=== PATIENT | female | born 1950 | race Caucasian/White ===

== ENCOUNTER 2016-07-10 22:21 | Emergency (ER) | payer MEDICARE ==
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
[2016-07-10] MEDS ORDERED: ACETAMINOPHEN 325 MG TABLET PO ONE (22:39)
[2016-07-11] MEDS ORDERED: HYDROCODONE/ACETAMINOPHEN 5-325 MG 6 TAB/DSPK PO PRN (03:08)
[2016-07-11] MEDS ORDERED: DIPH/PERTUSS(ACELL)/TETANUS VAC/PF 0.5 ML SYR (>=10YO) IM ONE (03:09)
[2016-07-11] MEDS ORDERED: CIPROFLOXACIN HCL 0.3% OPH SOLN 2.5 ML OS SCH ×2 (03:15→09:00)
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
[2016-07-11] MEDS ORDERED: CIPROFLOXACIN HCL 0.3% OPH SOLN 2.5 ML OS ONE (03:30)
[2016-07-11 03:34] VITALS: BP 168/82
== END 2016-07-11 03:45 | disposition home or self-care (01) ==
LOC: ER 22:21
DX: H16.002 Unspecified corneal ulcer, left eye (principal); J30.2 Other seasonal allergic rhinitis; I25.2 Old myocardial infarction; I10 Essential (primary) hypertension; Z95.0 Presence of cardiac pacemaker
CPT/HCPCS: 99283; 90471; 90715; A9270 ×2; J3490

== ENCOUNTER 2017-07-20 19:00 | Observation (INO) | payer MEDICARE ==
[2017-07-20] MEDS ORDERED: IPRATROPIUM/ALBUTEROL 0.5-2.5 MG/3 ML AMPUL NEB ONE ×2 (19:26→19:57)
[2017-07-20] MEDS ORDERED: PREDNISONE 20 MG TABLET PO ONE (19:28)
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
--- NOTE | 2017-07-20 20:22 | RADIOLOGY REPORT (SQ) ---
EXAM DESCRIPTION: CHEST PA/LAT COMPLETED DATE/TIME: 07/20/2017 8:15 pm REASON FOR STUDY: cough, wheezing, sob COMPARISON: Two-view chest 01/12/2016 EXAM PARAMETERS: NUMBER OF VIEWS: two views TECHNIQUE: Digital Frontal and Lateral radiographic views of the chest acquired. RADIATION DOSE: NA LIMITATIONS: none FINDINGS: LUNGS AND PLEURA: No opacities, masses or pneumothorax. No pleural effusion. MEDIASTINUM AND HILAR STRUCTURES: Right-sided aortic arch HEART AND VASCULAR STRUCTURES: Stable mild cardiomegaly BONES: Osteopenic. No acute fracture HARDWARE: Left-sided dual lead pacemaker OTHER: No other significant finding. IMPRESSION: No acute findings. TECHNICAL DOCUMENTATION: JOB ID: [id number] [email or web address] Rights Reserved Reading location - IP/workstation name: [email or web address]
[2017-07-20] MEDS: MAGNESIUM SULFATE/D5W 1 GM/100 ML RTUPB IV SCH ×2 (20:24→20:47)
[2017-07-20 20:44] LABS: VENOUS BLOOD BASE EXCESS 0.7 mmol/L; VENOUS BLOOD PCO2 39.1 mmHg (35-63); VENOUS BLOOD PH 7.42 (7.30-7.42)
[2017-07-20 20:46] LABS: ABSOLUTE EOSINOPHILS # (AUTO) 0.1 10^3/uL (0.0-0.6); ABSOLUTE LYMPHOCYTES (AUTO) 1.2 10^3/uL (0.5-4.7); ABSOLUTE MONOCYTES (AUTO) 0.5 10^3/uL (0.1-1.4); ABSOLUTE NEUT (AUTO) 1.9 10^3/uL (1.7-8.2); BASOPHILS % (AUTO) 0.5 % (0-2); EOSINOPHILS % (AUTO) 2.2 % (0-6); HEMATOCRIT 41.3 % (36.0-47.0); HEMOGLOBIN 13.8 g/dL (12.0-15.5); LYMPHOCYTES % (AUTO) 33.2 % (13-45); MEAN CORPUSCULAR HEMOGLOBIN 32.2 pg (27.0-33.4); MEAN CORPUSCULAR HGB CONC 33.5 g/dL (32.0-36.0); MEAN CORPUSCULAR VOLUME 96 fl (80-97); MONOCYTES % (AUTO) 13.3 % (3-13); RED CELL DISTRIBUTION WIDTH 13.9 % (11.5-14.0); SEGMENTED NEUTROPHILS % (AUTO) 50.8 % (42-78); TOTAL CELLS COUNTED % (AUTO) 100 %; WHITE BLOOD COUNT 3.8 10^3/uL (4.0-10.5)
[2017-07-20 21:05] LABS: ALANINE AMINOTRANSFERASE 54 U/L (9-52); ALBUMIN 3.6 g/dL (3.5-5.0); ALKALINE PHOSPHATASE 78 U/L (38-126); ANION GAP 7 (5-19); ASPARTATE AMINO TRANSFERASE 29 U/L (14-36); BILIRUBIN,DIRECT 0.1 mg/dL (0.0-0.4); BILIRUBIN,TOTAL 0.2 mg/dL (0.2-1.3); BLOOD UREA NITROGEN 19 mg/dL (7-20); CARBON DIOXIDE 27 mmol/L (22-30); CHLORIDE 107 mmol/L (98-107); DIGOXIN 0.42 ng/mL (0.8-2.0); GLUCOSE 97 mg/dL (75-110); POTASSIUM 4.6 mmol/L (3.6-5.0); SODIUM 141.2 mmol/L (137-145); TOTAL PROTEIN 5.7 g/dL (6.3-8.2)
[2017-07-20 21:13] LABS: NT PRO BNP 794 pg/mL (5-900); TROPONIN I < 0.012 ng/mL
[2017-07-20 21:23] LABS: PLATELET COUNT 91 10^3/uL (150-450)
[2017-07-20] MEDS ORDERED: ALBUTEROL SULFATE 0.083% NEB 2.5 MG/3 ML AMPUL NEB PRN (21:40)
[2017-07-20] MEDS ORDERED: PROMETHAZINE HCL INJ 25 MG/1 ML VIAL IV PRN (21:40)
[2017-07-20] MEDS ORDERED: ACETAMINOPHEN 325 MG TABLET PO PRN (21:40)
[2017-07-20] MEDS ORDERED: OSELTAMIVIR PHOSPHATE 75 MG CAPSULE PO ONE (22:00)
[2017-07-20] MEDS: METHYLPREDNISOLONE INJ 40 MG/1 ML SDV IV SCH (22:10)
[2017-07-21] MEDS ORDERED: WARFARIN SODIUM 7.5 MG TABLET PO SCH (00:30)
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
[2017-07-21] MEDS: IPRATROPIUM/ALBUTEROL 0.5-2.5 MG/3 ML AMPUL NEB SCH ×2 (02:21→07:46)
[2017-07-21 03:25] LABS: INTERNATIONAL RATION (INR) 1.19; PROTHROMBIN TIME 15.9 SEC (11.4-15.4)
[2017-07-21] MEDS: METHYLPREDNISOLONE INJ 40 MG/1 ML SDV IV SCH (06:13)
--- NOTE | 2017-07-21 07:09 | EKG REPORT ---
SEVERITY:- ABNORMAL ECG - ATRIAL-PACED COMPLEXES IVCD, CONSIDER ATYPICAL RBBB PROBABLE LVH WITH SECONDARY REPOL ABNRM OLD INFERIOR HI : Confirmed by: Chadwick Franco MD 21-Jul-2017 07:08:58
[2017-07-21] MEDS ORDERED: PREDNISONE 20 MG TABLET PO SCH (10:00)
[2017-07-21] MEDS ORDERED: GUAIFENESIN 600 MG TABLET.SA PO SCH (10:00)
[2017-07-21] MEDS ORDERED: OSELTAMIVIR PHOSPHATE 75 MG CAPSULE PO SCH (10:00)
[2017-07-21 12:15] VITALS: BP 134/74
--- NOTE | 2017-07-21 13:49 | DISCHARGE SUMMARY E ---
Discharge Summary NAME: WOODROW BROWNLEE : 1950 AGE: 66Y ADMITTED: 07/20/2017 DISCHARGED: 07/21/2017 CODE STATUS: FULL CODE. PRIMARY CARE PROVIDER: Juaquin Barahona M.D. FINAL DIAGNOSES: 1. Influenza B. 2. Dyspnea which has improved. 3. History of pulmonary embolism and subsequent chronic anticoagulation. 4. Coronary artery disease. 5. Chronic systolic congestive heart failure. 6. Sleep apnea with CPAP. DISCHARGE MEDICATIONS: 1. Coumadin 7.5 mg by mouth q. hour sleep 30 tablets, 0 refills. Repeat INR in 3 days. 2. Prednisone 40 mg taper. 3. Tamiflu 75 mg twice a day by mouth. 4. Mucinex 1200 mg by mouth q.12 hours. 5. ProAir HFA 1 puff inhalation q.4 hours as needed shortness of breath. DIET: Heart healthy. ACTIVITY: As tolerated. CONDITION: Stable. DIAGNOSTICS: Hematology obtained on 07/20/2017 demonstrates a WBC 3.8, hemoglobin 7.8, hematocrit 41.3, and platelet count is 91,000. Coagulation obtained on 07/21/2017: PT is 6.9, INR 1.19, , D-dimer is 0.31. Venous blood gas obtained on 07/20/2017: A pH of 7.42, pCO2 is 39.1, bicarb is 25.0. Chemistry obtained on 07/21/2017: Sodium is 141, potassium is 4.6, chloride 107, carbon dioxide 27, BUN 19, creatinine 0.78, glucose 97, calcium is 9.0, bilirubin 0.2, AST 29, ALT 54, alk phos 78. Troponin 0.012. BNP is 794. Total protein 5.6, albumin 3.6. Toxicology obtained on 07/20/2017: Digoxin is 0.42. Serology obtained on 07/20/2017: Group A strep is negative. Microbiology blood cultures obtained on 07/20/2017 revealed no growth. Throat culture obtained on 07/20/2017 revealed no recorded results at this time. Chest x-ray obtained on 07/20/2017 revealed no acute findings. PHYSICAL EXAMINATION: GENERAL: The patient is a 66-year-old female who is awake, alert and oriented to person, place, time, and situation. She is verbal, conversation. In no acute distress. VITAL SIGNS: Temperature 98.0, pulse 76, respirations 18, blood pressure is 147/69, oxygen saturation 100% on 2 L nasal cannula. SKIN: Warm and dry. No rash. Not diaphoretic. HEENT: Pupils equal, round and reactive to light and accommodation. Conjunctivae pink. NECK: No evidence of JVP. CARDIOVASCULAR SYSTEM: Regular without murmur or rub. CHEST: Expiratory wheezes noted in the upper lung andrade. ABDOMEN: Soft, nontender, nondistended. BACK: No CVA tenderness or sacral edema. EXTREMITIES: No clubbing, cyanosis, or edema. PSYCHIATRIC: Appropriate affect, pleasant mood. HISTORY OF PRESENT ILLNESS: The patient is a 66-year-old female with a past medical history of known chronic systolic congestive heart failure with apparent cardiomyopathy resulting in an EF of 20%. The patient presented to the emergency department with a chief complaint of shortness of breath. Apparently, the patient went to primary care provider and was noted to have influenza B. The patient was discharged on Tamiflu and was instructed to return to the hospital if her symptoms persisted or if her oxygen saturations were below 94%. Given the patient's oxygen level dropped to 94% she came to the emergency department as instructed. The patient apparently said she had not been feeling well, however, she was not acutely tachypneic only mildly hypoxic. Given that the patient has underlying CHF, there was concern for the patient felt that she needed to be admitted at least for observation. The patient was referred to the hospitalist for observation and management. HOSPITAL COURSE: The patient was observed in the continuous telemetry unit. The patient was placed on steroids and nebulizers with significant improvement of symptoms. The patient did not require oxygen and was ambulating in the hallway and maintained within the high 90s with ambulation, nor was the patient was advertently symptomatic. The patient does admit to some mild dyspnea with activity. However, she is able to ambulate without issue. The patient does have a strong cough, has been able to produce some sputum, but the patient has not been significantly tachycardic or tachypneic and the patient is quite eager for discharge. The patient is instructed to follow up with her primary care provider as she does need a repeat INR as the patient's INR was subtherapeutic. The patient's Coumadin was increased to 7.5 mg. The patient is agreeable to this. The patient already has a prescription for Tamiflu as well as ProAir which this shall be continued. DISCHARGE PLANNING: The patient is advised to follow up with her primary care provider within 72 hours for hospital follow up for repeat INR. Time spent on this discharge including assessment, plan, physical examination, patient education, and review of records is 35 minutes. DICTATING PHYSICIAN: SVETA MCGINNIS NP [id number] PHY#: [id number] ID: [id number] JOB#: [id number] ACCT: [id number] cc:PERRI ROMANO M.D. >
[2017-07-21] MEDS ORDERED: WARFARIN SODIUM 5 MG TABLET PO SCH (22:00)
[2017-07-22] MEDS ORDERED: WARFARIN SODIUM 2.5 MG TABLET PO SCH (22:00)
[2017-07-23] MEDS ORDERED: WARFARIN SODIUM 5 MG TABLET PO SCH (22:00)
== END 2017-07-21 16:08 | disposition home or self-care (01) ==
LOC: ER 19:00 → EH 21:51 → 4N 07-21 00:35
PROVIDERS: ADMIT Internal Medicine Geriatric Medicine; ATTEND Internal Medicine Geriatric Medicine
DX: J11.1 Influenza due to unidentified influenza virus with other respiratory manifestations (principal); I11.0 Hypertensive heart disease with heart failure; I50.22 Chronic systolic (congestive) heart failure; I25.10 Atherosclerotic heart disease of native coronary artery without angina pectoris; Z79.01 Long term (current) use of anticoagulants; Z86.711 Personal history of pulmonary embolism
CPT/HCPCS: 93005; 94640 ×4; 99285; 96375; 96365; 36415 ×2; 87040; 87070; 87880; 80162; 85025; 85610 ×2; 80053; 84484 ×2; 85379; 82803; 83880; 71046; 93010; G0378 ×2; A9270 ×7; J2920 ×2; J3475; J3490 ×2; J7512; J7620

== ENCOUNTER → 2017-11-11 | Outpatient (CLI) | payer MEDICARE ==
--- NOTE | 2017-11-11 10:18 | RADIOLOGY REPORT (SQ) ---
EXAM DESCRIPTION: U/S ABDOMEN COMPLETE W/O DOP COMPLETED DATE/TIME: 11/11/2017 10:00 am REASON FOR STUDY: OTHER CIRRHOSIS OF LIVER K74.69 OTHER CIRRHOSIS OF LIVER COMPARISON: February 2016 TECHNIQUE: Dynamic and static grayscale images acquired of the abdomen and recorded on PACS. Gabrielleo sharon selected color Doppler and spectral images recorded. LIMITATIONS: None. FINDINGS: PANCREAS: No masses. Visualized pancreatic duct normal caliber. LIVER: No masses. Echotexture normal. LIVER VASCULATURE: Normal directional flow of the main portal vein. GALLBLADDER: Status post cholecystectomy ULTRASOUND-DETECTED MARES'S SIGN: Negative. INTRAHEPATIC DUCTS AND COMMON DUCT: CBD and intrahepatic ducts normal caliber. No filling defects. INFERIOR VENA CAVA: Normal flow. AORTA: No aneurysm. RIGHT KIDNEY: 9.0 cm in length Normal echogenicity. No solid or suspicious masses. Small cyst i s identified measuring 1.8 x 1.7 x 1.1 cm in diameters. No hydronephrosis. No calcifications. LEFT KIDNEY: 8.8 cm in length. Normal echogenicity. No solid or suspicious masses. No hydronep hrosis. No calcifications. SPLEEN: Normal size. No solid masses. PERITONEAL AND PLEURAL SPACES: No ascites or effusions. OTHER: No other significant finding. IMPRESSION: No significant intra-abdominal abnormalities were identified. Status post cholecystecto my. TECHNICAL DOCUMENTATION: JOB ID: [id number] [employer]- All Rights Reserved Reading location - IP/workstation name: [email or web address]
== END ==
LOC: RAD 09:08
PROVIDERS: ATTEND Internal Medicine Gastroenterology
DX: K74.69 Other cirrhosis of liver (principal)
CPT/HCPCS: 76700

== ENCOUNTER 2017-11-17 18:42 | Emergency (ER) | payer MEDICARE ==
[2017-11-17] MEDS ORDERED: PERMETHRIN 5% CREAM 60 GM TP PRN (21:08)
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
[2017-11-17] MEDS ORDERED: PERMETHRIN 5% CREAM 60 GM ONE (21:59)
[2017-11-17 22:10] VITALS: BP 169/93
== END 2017-11-17 22:10 | disposition home or self-care (01) ==
LOC: ER 18:42
DX: B86 Scabies (principal); I25.10 Atherosclerotic heart disease of native coronary artery without angina pectoris; I10 Essential (primary) hypertension
CPT/HCPCS: 99282; J3490

== ENCOUNTER → 2018-06-11 | Outpatient (CLI) | payer MEDICARE ==
--- NOTE | 2018-06-11 14:28 | WOMENS IMAGING REPORT ---
EXAM DESCRIPTION: BILAT SCREENING MAMMO W/CAD COMPLETED DATE/TIME: 06/11/2018 2:17 pm REASON FOR STUDY: Z12.31 BILATERAL SCREENING MAMMOGRAM Z12.31 ENCNTR SCREEN MAMMOGRAM FOR MALIGNANT NEOPLASM OF MARA R42 DIZZINESS AND GIDDINESS COMPARISON: 2016 TECHNIQUE: Standard craniocaudal and mediolateral oblique views of each breast recorded using BlueSpr[employer] l acquisition. LIMITATIONS: None. FINDINGS: Findings present which are benign by mammographic criteria. No suspicious masses, calcifi cations or architectural distortion. Pertinent benign findings: Benign bilateral breast parenchymal and arterial vascular calcifications. Artifact from pacemaker over the left upper chest with prominent subcutaneous vein, stable Read with the assistance of CAD. .[facility] - R2 Cenova Version 1.3 .[facility] - R2 Cenova Version 2.1 .[facility] - R2 Cenova Version 2.4 .[facility] - R2 Cenova Version 2.4 .[facility] - R2 Banquet Server On Call Version 9.2 Benign mammographic findings may include one or more of the following: Smooth masses, popcorn/rim/co arse calcifications, asymmetries, post-procedure changes, and lesions with long-standing stability. IMPRESSION: BENIGN MAMMOGRAPHIC FINDINGS. BIRADS 2 BREAST DENSITY: c. The breasts are heterogeneously dense, which may obscure small masses. BIRAD: 2 BENIGN FINDING(S) RECOMMENDATION: ROUTINE SCREENING Please consider yearly bilateral screening tomosynthesis in April 2019 given heterogeneously dense tissue COMMENT: The patient has been notified of the results by letter per MQSA requirements. Additional no tification policies are in place for contacting patient with suspicious or incomplete findings. Quality ID #225: The [employer] recommends an annual screening mammogram for women aged 40 years or over. This facility utilizes a reminder system to ensure that all patients receive reminder letters, and/or direct phone calls for appointments. This includes reminders for routine scr eening mammograms, diagnostic mammograms, or other Breast Imaging Interventions when appropriate. Th is patient will be placed in the appropriate reminder system. The [employer] (ACR) has developed recommendations for screening MRI of the breast s in certain patient populations, to be used in conjunction with mammography. Breast MRI surveillanc e may be appropriate for women with more than 20% lifetime risk of developing breast cancer as deter mined by genetic testing, significant family history of the disease, or history of mantle radiation f or Hodgkins Disease. ACR Practice Guidelines 2008. TECHNICAL DOCUMENTATION: FINDING NUMBER: (1) ASSESSMENT: (1) JOB ID: [id number] [employer]- All Rights Reserved Reading location - IP/workstation name: [email or web address]
--- NOTE | 2018-06-11 15:04 | RADIOLOGY REPORT (SQ) ---
EXAM DESCRIPTION: CAROTID DOPPLER COMPLETED DATE/TIME: 06/11/2018 1:40 pm REASON FOR STUDY: DIZZINESS Z12.31 ENCNTR SCREEN MAMMOGRAM FOR MALIGNANT NEOPLASM OF MARA R42 DIZZI NESS AND GIDDINESS COMPARISON: None. TECHNIQUE: Grayscale ultrasound, Doppler velocity and spectra, and color Doppler images acquired of the extra-cranial carotid and vertebral arteries. Images stored on PACS. LIMITATIONS: None. FINDINGS: RIGHT CAROTID CCA Velocities: Within normal limits. Right common carotid artery peak systolic velocity 0.61 m/sec ICA Velocities Peak systolic 0.79 m/s. End diastolic 0.13 m/s. Proximal ICA/CCA peak systolic ratio 1.7. Calcific plaque at the right carotid bifurcation without flow significant stenosis proximal right ICA LEFT CAROTID CCA Velocities: Within normal limits. Left common carotid artery peak systolic velocity 0.83 m/sec ICA Velocities Peak systolic 0.67 m/s. End diastolic 0.12 m/s. Proximal ICA/CCA peak systolic ratio 1.5. Spectra normal. No significant plaque. VERTEBRAL ARTERIES: Antegrade flow. Normal waveforms. SUBCLAVIAN ARTERIES: Not evaluated OTHER: No other significant finding. IMPRESSION: NO HEMODYNAMICALLY SIGNIFICANT STENOSIS AT THE CAROTID BIFURCATIONS. COMMENT: Quality ID #195: Velocity criteria are extrapolated from the diameter data as defined by t he Society of Radiologists in Ultrasound Consensus Conference. Radiology 2003: 229; 340-346. TECHNICAL DOCUMENTATION: JOB ID: [id number] [employer]- All Rights Reserved Reading location - IP/workstation name: [email or web address]
== END ==
LOC: SP 13:56
PROVIDERS: ATTEND Family Medicine
DX: Z12.31 Encounter for screening mammogram for malignant neoplasm of breast (principal); R42 Dizziness and giddiness
CPT/HCPCS: 77067; 93880

== ENCOUNTER → 2018-07-29 | Outpatient (CLI) | payer MEDICARE ==
--- NOTE | 2018-07-29 13:07 | WOMENS IMAGING REPORT ---
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 TECHNIQUE: Dynamic and static grayscale images acquired of the abdomen and recorded on PACS. Additio nal selected color Doppler and spectral images recorded. LIMITATIONS: None. FINDINGS: PANCREAS: No masses. Visualized pancreatic duct normal caliber. LIVER: No masses. Echotexture normal. LIVER VASCULATURE: Normal directional flow of the main portal vein and hepatic veins. GALLBLADDER: Surgically absent. ULTRASOUND-DETECTED MARES'S SIGN: Not applicable. INTRAHEPATIC DUCTS AND COMMON DUCT: CBD and intrahepatic ducts normal caliber. No filling defects. INFERIOR VENA CAVA: Normal flow. AORTA: No aneurysm. RIGHT KIDNEY: Normal size. Normal echogenicity. No solid or suspicious masses. No hydronephrosis. No calcifications. PERITONEAL AND RIGHT PLEURAL SPACE: No ascites or effusions. OTHER: No other significant findings. IMPRESSION: NORMAL RIGHT UPPER QUADRANT ULTRASOUND. TECHNICAL DOCUMENTATION: JOB ID: [id number]- All Rights Reserved Reading location - IP/workstation name: [email or web address]
== END ==
LOC: WI 10:22
PROVIDERS: ATTEND Internal Medicine Gastroenterology
DX: B18.2 Chronic viral hepatitis C (principal); K74.69 Other cirrhosis of liver
CPT/HCPCS: 76705

== ENCOUNTER 2019-09-24 13:26 | Inpatient (IN) | payer MEDICARE ==
[2019-09-24 13:48] LABS: ABSOLUTE LYMPHOCYTES (AUTO) 1.5 10^3/uL (0.5-4.7); ABSOLUTE MONOCYTES (AUTO) 0.3 10^3/uL (0.1-1.4); ABSOLUTE NEUT (AUTO) 2.5 10^3/uL (1.7-8.2); BASOPHILS % (AUTO) 0.7 % (0-2); EOSINOPHILS % (AUTO) 0.3 % (0-6); HEMATOCRIT 39.2 % (36.0-47.0); HEMOGLOBIN 13.4 g/dL (12.0-15.5); MEAN CORPUSCULAR HEMOGLOBIN 32.8 pg (27.0-33.4); MEAN CORPUSCULAR HGB CONC 34.2 g/dL (32.0-36.0); MEAN CORPUSCULAR VOLUME 96 fl (80-97); MONOCYTES % (AUTO) 7.8 % (3-13); PLATELET COUNT 111 10^3/uL (150-450); RED BLOOD COUNT 4.09 10^6/uL (3.72-5.28); RED CELL DISTRIBUTION WIDTH 13.8 % (11.5-14.0); SEGMENTED NEUTROPHILS % (AUTO) 57.2 % (42-78); TOTAL CELLS COUNTED % (AUTO) 100 %; WHITE BLOOD COUNT 4.4 10^3/uL (4.0-10.5)
[2019-09-24 14:14] LABS: ALBUMIN 3.8 g/dL (3.5-5.0); ALKALINE PHOSPHATASE 84 U/L (38-126); ASPARTATE AMINO TRANSFERASE 23 U/L (14-36); BILIRUBIN,TOTAL 0.9 mg/dL (0.2-1.3); BLOOD UREA NITROGEN 17 mg/dL (7-20); CALCIUM 8.8 mg/dL (8.4-10.2); CARBON DIOXIDE 33 mmol/L (22-30); CHLORIDE 100 mmol/L (98-107); CREATINE KINASE 71 U/L (30-135); GLUCOSE 93 mg/dL (75-110); POTASSIUM 3.3 mmol/L (3.6-5.0); TOTAL PROTEIN 6.3 g/dL (6.3-8.2)
[2019-09-24 14:23] LABS: ANION GAP 4 (5-19)
[2019-09-24 14:25] LABS: CREATINE KINASE MB 0.37 ng/mL (<4.55)
[2019-09-24 14:31] LABS: TROPONIN I < 0.012 ng/mL
--- NOTE | 2019-09-24 15:30 | EKG REPORT ---
SEVERITY:- ABNORMAL ECG - ATRIAL-PACED RHYTHM RIGHT BUNDLE BRANCH BLOCK INFERIOR UT, AGE INDETERMINATE, CLINICAL CORRELATION NEEDED : Confirmed by: Chadwick Franco MD 24-Sep-2019 15:29:51
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
[2019-09-24] MEDS ORDERED: OXYCODONE-ACETAMINOPHEN 5-325 MG TABLET PO PRN (16:08)
[2019-09-24] MEDS ORDERED: ACETAMINOPHEN 325 MG TABLET PO PRN (16:08)
[2019-09-24] MEDS ORDERED: TEMAZEPAM 7.5 MG CAPSULE PO PRN (16:08)
[2019-09-24] MEDS ORDERED: ONDANSETRON 4 MG TAB.RAPDIS PO PRN (16:08)
[2019-09-24] MEDS ORDERED: ONDANSETRON HCL INJ/PF 4 MG/2 ML SDV IV PRN (16:08)
--- NOTE | 2019-09-24 16:49 | RADIOLOGY REPORT (SQ) ---
EXAM DESCRIPTION: CHEST SINGLE VIEW IMAGES COMPLETED DATE/TIME: 09/24/2019 4:37 pm REASON FOR STUDY: chest pain COMPARISON: PA and lateral views of the chest from 08/11/2018. EXAM PARAMETERS: NUMBER OF VIEWS: One view. TECHNIQUE: An AP view of the chest was obtained. RADIATION DOSE: NA LIMITATIONS: None. FINDINGS: LUNGS AND PLEURA: No consolidation, pleural effusion or pneumothorax. MEDIASTINUM AND HILAR STRUCTURES: No mediastinal or hilar contour abnormality. HEART AND VASCULAR STRUCTURES: The cardiac silhouette is enlarged. BONES: No acute findings. HARDWARE: Intact left subclavian vein approach ICD, surgical clips that project to the right of the t horacic inlet and over the right axilla, and intra-articular loose bodies in the left shoulder. OTHER: No other finding. IMPRESSION: Cardiomegaly without a superimposed acute cardiopulmonary process. TECHNICAL DOCUMENTATION: JOB ID: [id number] 2010 [employer]- All Rights Reserved Reading location - IP/workstation name: [email or web address]
[2019-09-24 17:23] LABS: INTERNATIONAL RATION (INR) 1.01; PROTHROMBIN TIME 13.3 SEC (11.4-15.4)
[2019-09-24 17:37] LABS: NT PRO BNP 919 pg/mL (<125); TROPONIN I < 0.012 ng/mL
[2019-09-24 18:18] VITALS: BP 106/69
--- NOTE | 2019-09-24 18:19 | Left Against Medical Advice ---
Against Medical Advice Admission Date/Time: 09/24/19 16:17 Primary Care Provider: ALBINO BULLARD MD Date of Patient Emigration: 09/24/19 - Diagnosis: (1) Aortic valve replaced Is this a current diagnosis for this admission?: Yes (2) Chest pain, rule out acute myocardial infarction Is this a current diagnosis for this admission?: Yes (3) CAD (coronary artery disease) Is this a current diagnosis for this admission?: Yes (4) Chronic anticoagulation Is this a current diagnosis for this admission?: Yes (5) HLD (hyperlipidemia) Is this a current diagnosis for this admission?: Yes (6) HTN (hypertension) Is this a current diagnosis for this admission?: Yes (7) Jaw pain, non-TMJ Is this a current diagnosis for this admission?: Yes - Summary: Summary: Please see Admission and Progress Notes as well. WOODROW BROWNLEE is a 68 F, who LEFT AGAINST MEDICAL ADVICE. The Patient was admitted on 09/24/19 16:17. Patient was admitted to the hospital to rule out VA. Patient had orders written and consult put in for cardiology and was actually discussed with cardiology who has agreed to see the patient.. Dentally when the patient's second troponin came back she decided that she would go home. Patient is leaving AM as I do not think that she should leave without having a complete work-up. Patient has been told by the emergency room physician that she could from her decision tonight that she could be having a myocardial infarction in fact I myself told the patient that I have seen the third troponin come back extremely high when the first 2 were either negative or very low. So the fact that the patient has had an VA in the past 8 years ago and she said that this feels exactly like it did before makes me want her to stay into the [facility] and see cardiology as ordered. However patient has chosen to leave A
[2019-09-24] MEDS ORDERED: CARVEDILOL 12.5 MG TABLET PO SCH (22:00)
[2019-09-24] MEDS ORDERED: HEPARIN SOD (PORCINE) 5,000 UNIT/ML 1 ML VIAL SUBCUT SCH (22:00)
[2019-09-25] MEDS ORDERED: PANTOPRAZOLE SODIUM 20 MG TABLET.DR PO SCH (06:00)
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
[2019-09-25] MEDS ORDERED: DOCUSATE SODIUM 100 MG CAPSULE PO SCH (10:00)
== END 2019-09-24 18:28 | disposition left against medical advice (07) | DRG 313 ==
LOC: ER 13:26 → EH 16:17 → OBSVTOIN 16:26
PROVIDERS: ADMIT Hospitalist; ATTEND Hospitalist
DX: R07.9 Chest pain, unspecified (principal); D69.6 Thrombocytopenia, unspecified; I11.0 Hypertensive heart disease with heart failure; I50.9 Heart failure, unspecified; Z95.2 Presence of prosthetic heart valve; I25.10 Atherosclerotic heart disease of native coronary artery without angina pectoris; E78.5 Hyperlipidemia, unspecified; R68.84 Jaw pain; R79.89 Other specified abnormal findings of blood chemistry; Z53.29 Procedure and treatment not carried out because of patient's decision for other reasons; F43.10 Post-traumatic stress disorder, unspecified; F32.9 Major depressive disorder, single episode, unspecified; I45.10 Unspecified right bundle-branch block; I25.2 Old myocardial infarction; Z86.711 Personal history of pulmonary embolism; Z95.810 Presence of automatic (implantable) cardiac defibrillator; Z87.891 Personal history of nicotine dependence; Z79.82 Long term (current) use of aspirin; Z88.2 Allergy status to sulfonamides; Z79.899 Other long term (current) drug therapy
CPT/HCPCS: 36415; 71045; 80053; 82550; 82553; 83880; 84443; 84484; 85025; 85610; 93005; 93010; 99285

== ENCOUNTER → 2020-04-05 | Outpatient (CLI) | payer MEDICARE ==
[2020-04-05 12:07] LABS: ABSOLUTE MONOCYTES (AUTO) 0.6 10^3/uL (0.1-1.4); TOTAL CELLS COUNTED % (AUTO) 100 %
[2020-04-05 12:10] LABS: ABSOLUTE BASOPHILS # (AUTO) 0.1 10^3/uL (0.0-0.2); ABSOLUTE EOSINOPHILS # (AUTO) 0.1 10^3/uL (0.0-0.6); ABSOLUTE LYMPHOCYTES (AUTO) 1.2 10^3/uL (0.5-4.7); ABSOLUTE NEUT (AUTO) 5.9 10^3/uL (1.7-8.2); BASOPHILS % (AUTO) 0.7 % (0-2); EOSINOPHILS % (AUTO) 0.7 % (0-6); HEMATOCRIT 39.2 % (36.0-47.0); HEMOGLOBIN 13.3 g/dL (12.0-15.5); LYMPHOCYTES % (AUTO) 15.7 % (13-45); MEAN CORPUSCULAR HEMOGLOBIN 32.4 pg (27.0-33.4); MEAN CORPUSCULAR HGB CONC 34.1 g/dL (32.0-36.0); MEAN CORPUSCULAR VOLUME 95 fl (80-97); MONOCYTES % (AUTO) 8.1 % (3-13); PLATELET COUNT 162 10^3/uL (150-450); RED BLOOD COUNT 4.11 10^6/uL (3.72-5.28); RED CELL DISTRIBUTION WIDTH 13.1 % (11.5-14.0); SEGMENTED NEUTROPHILS % (AUTO) 74.8 % (42-78); WHITE BLOOD COUNT 7.8 10^3/uL (4.0-10.5)
[2020-04-05 12:14] LABS: ANION GAP 6 (5-19); BLOOD UREA NITROGEN 31 mg/dL (7-20); CALCIUM 9.2 mg/dL (8.4-10.2); CARBON DIOXIDE 29 mmol/L (22-30); CHLORIDE 103 mmol/L (98-107); GLUCOSE 93 mg/dL (75-110); POTASSIUM 4.6 mmol/L (3.6-5.0)
== END ==
LOC: WELLCARE 11:37
PROVIDERS: ATTEND Internal Medicine Cardiovascular Disease
DX: I50.42 Chronic combined systolic (congestive) and diastolic (congestive) heart failure (principal); I25.10 Atherosclerotic heart disease of native coronary artery without angina pectoris; I48.0 Paroxysmal atrial fibrillation; I71.2 Thoracic aortic aneurysm, without rupture
CPT/HCPCS: 80048; 83735; 85025